=== PATIENT | female | born 1960 | race Caucasian/White ===

== ENCOUNTER → 2018-02-24 03:51 | Outpatient (CLI) | payer OTHER, SELFPAY ==
[2018-02-24 11:23] LABS: ALT 28 U/L (12-78); AST 20 U/L (15-37); Albumin 3.7 g/dL (3.4-5.0); Alkaline Phosphatase 114 U/L (46-116); Anion Gap 8.2 mmol/L (3-11); BUN 14 mg/dL (7-18); Bilirubin, Total 0.3 mg/dL (0.2-1.0); CO2 25.8 mmol/L (21.0-32.0); CREATININE 0.74 mg/dL (0.55-1.02); Calcium 8.7 mg/dL (8.5-10.1); Chloride 108 mmol/L (98-107); Cholesterol 142 mg/dL (50-200); Glucose 94 mg/dL (70-100); HDL Cholesterol 36 mg/dL (40-60); LDL CHOLESTEROL 90 mg/dL (<100); Potassium 5.2 mmol/L (3.5-5.1); Sodium 142 mmol/L (136-145); Total Protein 6.8 g/dL (6.4-8.2); Triglyceride 68 mg/dL (30-150)
== END ==
DX: E78.2 Mixed hyperlipidemia (principal); C56.9 Malignant neoplasm of unspecified ovary; E78.5 Hyperlipidemia, unspecified; F17.200 Nicotine dependence, unspecified, uncomplicated; Z00.00 Encounter for general adult medical examination without abnormal findings
CPT/HCPCS: 36415; 80053; 80061; 83721

== ENCOUNTER 2018-04-21 15:08 | Outpatient (REF) | payer OTHER, SELFPAY ==
--- NOTE | 2018-04-21 11:30 | PAPFT_PTH ---
PATIENT: Jessenia Aguilar LOC: [facility] U#:[id number] AGE/SX: 57/F ROOM: RE04/21/[address]: RAMSES Lamb : 1960 BED: DIS: 04/21/2018 SPEC #: [id number] RECD: 04/21/18 18:00 STATUS: DENY RESage #: [id number] MANDO: 04/21/18 11:[address]: Susan Henson DEPT: [facility] Cytology RECD BY: Suzette Mak ENTERED: 04/21/18 18:00 SP TYPE: PAPFT OTHR DR: Divya Delcid APRN Tissues: 1 - CX/ENDOCX FOR PAP SMEARS Procedures: PAP THIN PREP/UVM Screening Comments: [id number]
== END 2018-04-21 15:28 ==
LOC: LBN 15:08
PROVIDERS: Visit Provider Nurse Practitioner Family
DX: Z12.4 Encounter for screening for malignant neoplasm of cervix (principal)
CPT/HCPCS: 88142

== ENCOUNTER 2018-05-12 01:07 | Outpatient (CLI) | payer OTHER, SELFPAY ==
--- NOTE | 2018-05-12 11:36 | DI.MAMMO_ITS ---
SYMPTOM/DIAGNOSIS: SCREENING, Z12.31 MAMMOGRAMS: Mammograms were interpreted according to the usual protocol including computer analysis with CAD system, tomosynthesis and C view imaging. Comparison with prior examinations. Breast density Category B. No masses or microcalcifications are seen. There is nothing to suggest malignancy. IMPRESSION: Negative mammogram. Routine screening is recommended. Category I. MQSA ASSESSMENT OF FINDINGS: Negative. Category 1. Patient will receive a letter notifying them of these results. BI-RADS category B. There are scattered areas of fibroglandular density.
== END 2018-05-12 01:27 ==
PROVIDERS: Visit Provider Nurse Practitioner Family
DX: Z12.31 Encounter for screening mammogram for malignant neoplasm of breast (principal)
CPT/HCPCS: 77063; 77067

== ENCOUNTER 2018-09-03 07:20 | Emergency (ER) | payer OTHER, SELFPAY ==
[2018-09-03 07:25] VITALS: BP 135/66; PULSE 96; RESP 18; TEMP 37.1; O2SAT 98
--- NOTE | 2018-09-03 07:30 | W.ED.GENAD ---
Discharge Plan Disposition Patient Disposition: HOME Condition: Good Discharge Details Chief Complaint: RespSymp Clinical Impression: Acute bacterial sinusitis Primary Care Provider: Divya Delcid ED Provider: Gavin Singh [place] Meds and New Rx's Prescriptions: New amoxicillin-pot clavulanate 875-125 mg tablet 1 tab PO BID Qty: 14 RF: 0 Continued multivitamin [One Daily] 1 EACH tablet 1 tab PO DAILY RF: 0 Os-Marques 500 + D3 1 EACH tablet,chewable 1 tab PO DAILY RF: 0 simvastatin [Zocor] 20 mg tablet 20 mg PO HS Qty: 90 RF: 3 Discharge Instructions Instructions: Amoxicillin/Clavulanate Potassium (By mouth), Sinusitis (ED) Additional Instructions: Push fluids to stay hydrated. May continue wkhf-rqb-plhopwu cold and sinus medications. Sudafed may work better for you as a decongestant. Antibiotic as directed for 1 week. Consider taking a probiotic while on antibiotic. Follow-up with primary care in 1 week if not better. Return to emergency department for worsening pain, worsening headache, persistent high fever, neurologic changes, eye pain or vision changes. Referrals: Divya Delcid, RECEPTION SPECIALIST [Primary Care Provider] - Medical Decision Making Patient here with sinus/nasal congestion with purulent discharge, low-grade fever, sinus tenderness. She has been ill for over 3 weeks. She was getting better and got worse suggesting possible bacterial superinfection. With the amount of tenderness and purulent drainage will treat with antibiotics. May continue symptomatic management with idnf-ixj-ijnwwrb cold and sinus medication. Follow-up with primary care next week if not better. Return to ED if worsening symptoms. HPI General Mode of arrival: ambulatory. Date/Time Provider Initiated Documentation: 09/03/18 07:30. Limitations to Documentation: no limitations. Information obtained by: patient. HPI Narrative: Patient presents to ED with complaint of sinus pain and pressure. Patient has been ill with URI type symptoms for almost 3 weeks. She thought she was getting better but has subsequently got worse with increased pain and pressure in her face as well as green nasal discharge. She has had some low-grade fevers recently. Her cough has steadily improved. She had body aches which have resolved. She never really had earache or sore throat. She has been using ripf-zkc-[id number] Advil cold and sinus symptoms. She is a smoker. She is otherwise healthy. She has no known drug allergies. Related Data Home Medications Medication Instructions Recorded Confirmed Os-Marques 500 + D3 1 tab PO DAILY tab.chew 11/08/12 09/03/18 multivitamin [One Daily] 1 tab PO DAILY 11/08/12 09/03/18 simvastatin 20 mg tablet 20 mg PO HS #90 tab-cap 04/07/18 09/03/18 amoxicillin-pot clavulanate 1 tab PO BID #14 tab 09/03/18 Previous Rx's Medication Instructions Recorded simvastatin 20 mg tablet 20 mg PO HS #90 tab-cap 04/07/18 amoxicillin-pot clavulanate 1 tab PO BID #14 tab 09/03/18 Allergies Allergy/AdvReac Type Severity Reaction Status Date / Time No Known Drug Allergies Allergy Unverified 09/03/18 07:29 General Stated Complaint: RespSymp EMBER: 4 Review of Systems Constitutional Denies chills, Denies fatigue, Reports fever(s) (low grade), Denies headache(s), Denies malaise and Denies weakness Eyes Denies change in vision, Denies eye discharge and Denies eye pain ENT Denies vertigo, Denies dizziness, Denies otalgia, Reports facial pain, Denies headache(s), Reports nasal congestion, Reports nasal discharge, Denies neck pain, Reports sinus pain, Reports sinus pressure and Denies sore throat Cardiovascular Denies chest pain and Denies dyspnea Respiratory Reports cough and Denies dyspnea Gastrointestinal Denies diarrhea, Denies nausea and Denies vomiting Musculoskeletal Denies back pain, Denies myalgias, Denies arthralgias, Denies neck pain and Denies numbness Neurologic Denies confusion, Denies vertigo, Denies dizziness, Denies headache(s), Denies focal weakness, Denies numbness and Denies weakness Psychiatric Denies confusion Endocrine Denies fatigue [facility] Medical History Hyperlipidemia (Chronic) Smoker (Chronic 11/09/12) Polyp of colon (Chronic) Malignant tumor of ovary (Chronic) Personal history of colonic polyps (Chronic) Surgical History Abdominal hysterectomy (~1988) Colonoscopy - IV Sedation (05/23/15) Oophrectomy, Left Social History current occupational status: employed current occupation: [employer] current occupational exposures/hazards: No Hx Recent Travel: No sexually active: Yes do you think of yourself as: straight/heterosexual well-balanced diet: about half the time what type of physical activity do you participate in: walking and normal ROM and activity frequency: 3-4 times per week Smoking and Tabacco status: Current-Occasional tobacco type: cigarettes Tobacco: How many years used: 42 quit status: considering quitting counseling given: counseling >3 minutes alcohol intake: current alcohol intake frequency: holidays/special occasions only substance use type: does not use special marie needs: No do you feel safe at home: Yes victim of physical abuse: No victim of emotional abuse: No victim of sexual abuse: No History History 2 Para 2 Hx # Term Pregnancies 2 Multiple births Hx # Pregnancies Ectopic pregnancies AB induced Hx Number of Living Children AB spontaneous Exam Const General: cooperative, comfortable and no acute distress Orientation: alert and oriented x3 HENMT Head: normocephalic and atraumatic Ears: TM normal on the left and unable to visualize TM on the right General nose exam: nasal discharge purulent Face and sinus: face symmetric and sinus tenderness maxillary Mouth: oropharynx normal and moist mucous membranes Throat: posterior oropharynx normal Eyes Pupils: PERRL EOM: EOM intact bilaterally Neck Neck: no lymphadenopathy, no meningeal signs, trachea midline and supple Resp Effort & Inspection: normal respiratory effort Auscultation: clear to auscultation bilaterally Neuro General: alert, oriented x3, gait normal, no focal motor deficits and CN's II-XI intact bilaterally Cognition: normal cognition Speech: speech normal Course Vital Signs Temperature 98.8 F 09/03/18 07:25 Pulse 96 H 09/03/18 07:25 Respiratory Rate 18 09/03/18 07:25 Blood Pressure 135/66 09/03/18 07:25 Pulse Oximetry 98 09/03/18 07:25 Temperature 98.8 F 09/03/18 07:25 Temperature Source Temporal Artery Scan 09/03/18 07:25 Pulse 96 H 09/03/18 07:25 Respiratory Rate 18 09/03/18 07:25 Respiratory Effort Non-Labored 09/03/18 07:29 Respiratory Depth Normal 09/03/18 07:29 Blood Pressure 135/66 09/03/18 07:25 Blood Pressure Position Sitting 09/03/18 07:25 Pulse Oximetry 98 09/03/18 07:25 Oxygen Delivery Method Room Air 09/03/18 07:25 Oxygen Flow Rate 0 09/03/18 07:25 Pain Level 10 09/03/18 07:25
[2018-09-03] MEDS: Amoxicillin 875/Clav. 125 TAB PO (07:48)
--- NOTE | 2018-09-03 07:49 | ED.GENADUL_ITS ---
Discharge Plan Disposition Patient Disposition: HOME Condition: Good Discharge Details Chief Complaint: RespSymp Clinical Impression: Acute bacterial sinusitis Primary Care Provider: Divya Delcid ED Provider: Gavin Singh [place] Meds and New Rx's Prescriptions: New amoxicillin-pot clavulanate 875-125 mg tablet 1 tab PO BID Qty: 14 RF: 0 Continued multivitamin [One Daily] 1 EACH tablet 1 tab PO DAILY RF: 0 Os-Marques 500 + D3 1 EACH tablet,chewable 1 tab PO DAILY RF: 0 simvastatin [Zocor] 20 mg tablet 20 mg PO HS Qty: 90 RF: 3 Discharge Instructions Instructions: Amoxicillin/Clavulanate Potassium (By mouth), Sinusitis (ED) Additional Instructions: Push fluids to stay hydrated. May continue kttg-its-pjjzdgd cold and sinus medications. Sudafed may work better for you as a decongestant. Antibiotic as directed for 1 week. Consider taking a probiotic while on antibiotic. Follow- up with primary care in 1 week if not better. Return to emergency department for worsening pain, worsening headache, persistent high fever, neurologic changes, eye pain or vision changes. Referrals: Divya Delcid, PASTE MIXER [Primary Care Provider] - Medical Decision Making Patient here with sinus/nasal congestion with purulent discharge, low-grade fever, sinus tenderness. She has been ill for over 3 weeks. She was getting better and got worse suggesting possible bacterial superinfection. With the amount of tenderness and purulent drainage will treat with antibiotics. May continue symptomatic management with socf-wir-kowsjsa cold and sinus medication. Follow-up with primary care next week if not better. Return to ED if worsening symptoms. HPI General Mode of arrival: ambulatory . Date/Time Provider Initiated Documentation: 09/03/18 07:30 . Limitations to Documentation: no limitations . Information obtained by: patient . HPI Narrative: Patient presents to ED with complaint of sinus pain and pressure. Patient has been ill with URI type symptoms for almost 3 weeks. She thought she was getting better but has subsequently got worse with increased pain and pressure in her face as well as green nasal discharge. She has had some low-grade fevers recently. Her cough has steadily improved. She had body aches which have resolved. She never really had earache or sore throat. She has been using znyg-qum-yhevmip Advil cold and sinus symptoms. She is a smoker. She is otherwise healthy. She has no known drug allergies. Related Data Home Medications Medication Instructions Recorded Confirmed Os-Marques 500 + D3 1 tab PO DAILY tab.chew 11/08/12 09/03/18 multivitamin [One Daily] 1 tab PO DAILY 11/08/12 09/03/18 simvastatin 20 mg tablet 20 mg PO HS #90 tab-cap 04/07/18 09/03/18 amoxicillin-pot clavulanate 1 tab PO BID #14 tab 09/03/18 Previous Rx's Medication Instructions Recorded simvastatin 20 mg tablet 20 mg PO HS #90 tab-cap 04/07/18 amoxicillin-pot clavulanate 1 tab PO BID #14 tab 09/03/18 Allergies Allergy/AdvReac Type Severity Reaction Status Date / Time No Known Drug Allergies Allergy Unverified 09/03/18 07:29 General Stated Complaint: RespSymp EMBER: 4 Review of Systems Constitutional Denies chills, Denies fatigue, Reports fever(s) (low grade), Denies headache(s), Denies malaise and Denies weakness Eyes Denies change in vision, Denies eye discharge and Denies eye pain ENT Denies vertigo, Denies dizziness, Denies otalgia, Reports facial pain, Denies headache(s), Reports nasal congestion, Reports nasal discharge, Denies neck pain, Reports sinus pain, Reports sinus pressure and Denies sore throat Cardiovascular Denies chest pain and Denies dyspnea Respiratory Reports cough and Denies dyspnea Gastrointestinal Denies diarrhea, Denies nausea and Denies vomiting Musculoskeletal Denies back pain, Denies myalgias, Denies arthralgias, Denies neck pain and Denies numbness Neurologic Denies confusion, Denies vertigo, Denies dizziness, Denies headache(s), Denies focal weakness, Denies numbness and Denies weakness Psychiatric Denies confusion Endocrine Denies fatigue [facility] Medical History Hyperlipidemia (Chronic) Smoker (Chronic 11/09/12) Polyp of colon (Chronic) Malignant tumor of ovary (Chronic) Personal history of colonic polyps (Chronic) Surgical History Abdominal hysterectomy (~1988) Colonoscopy - IV Sedation (05/23/15) Oophrectomy, Left Social History current occupational status: employed current occupation: [employer] current occupational exposures/hazards: No Hx Recent Travel: No sexually active: Yes do you think of yourself as: straight/heterosexual well-balanced diet: about half the time what type of physical activity do you participate in: walking and normal ROM and activity frequency: 3-4 times per week Smoking and Tabacco status: Current-Occasional tobacco type: cigarettes Tobacco: How many years used: 42 quit status: considering quitting counseling given: counseling >3 minutes alcohol intake: current alcohol intake frequency: holidays/special occasions only substance use type: does not use special marie needs: No do you feel safe at home: Yes victim of physical abuse: No victim of emotional abuse: No victim of sexual abuse: No History History 2 Para 2 Hx # Term Pregnancies 2 Multiple births Hx # Pregnancies Ectopic pregnancies AB induced Hx Number of Living Children AB spontaneous Exam Const General: cooperative, comfortable and no acute distress Orientation: alert and oriented x3 HENMT Head: normocephalic and atraumatic Ears: TM normal on the left and unable to visualize TM on the right General nose exam: nasal discharge purulent Face and sinus: face symmetric and sinus tenderness maxillary Mouth: oropharynx normal and moist mucous membranes Throat: posterior oropharynx normal Eyes Pupils: PERRL EOM: EOM intact bilaterally Neck Neck: no lymphadenopathy, no meningeal signs, trachea midline and supple Resp Effort & Inspection: normal respiratory effort Auscultation: clear to auscultation bilaterally Neuro General: alert, oriented x3, gait normal, no focal motor deficits and CN's II-XI intact bilaterally Cognition: normal cognition Speech: speech normal Course Vital Signs Temperature 98.8 F 09/03/18 07:25 Pulse 96 H 09/03/18 07:25 Respiratory Rate 18 09/03/18 07:25 Blood Pressure 135/66 09/03/18 07:25 Pulse Oximetry 98 09/03/18 07:25 Temperature 98.8 F 09/03/18 07:25 Temperature Source Temporal Artery Scan 09/03/18 07:25 Pulse 96 H 09/03/18 07:25 Respiratory Rate 18 09/03/18 07:25 Respiratory Effort Non-Labored 09/03/18 07:29 Respiratory Depth Normal 09/03/18 07:29 Blood Pressure 135/66 09/03/18 07:25 Blood Pressure Position Sitting 09/03/18 07:25 Pulse Oximetry 98 09/03/18 07:25 Oxygen Delivery Method Room Air 09/03/18 07:25 Oxygen Flow Rate 0 09/03/18 07:25 Pain Level 10 09/03/18 07:25
== END 2018-09-03 07:55 | disposition home or self-care (01) ==
PROVIDERS: Emergency Provider Emergency Medicine
DX: R51 Headache (principal); R50.9 Fever, unspecified; J01.90 Acute sinusitis, unspecified; F17.210 Nicotine dependence, cigarettes, uncomplicated
CPT/HCPCS: 99283

== ENCOUNTER 2019-03-30 01:53 | Outpatient (CLI) | payer OTHER, SELFPAY ==
[2019-03-30 11:21] LABS: ALT 26 U/L (14-59); AST 21 U/L (15-37); Albumin 3.7 g/dL (3.4-5.0); Alkaline Phosphatase 116 U/L (46-116); Anion Gap 11.7 mmol/L (3-11); BUN 13 mg/dL (7-18); Bilirubin, Total 0.4 mg/dL (0.2-1.0); CO2 24.3 mmol/L (21.0-32.0); CREATININE 0.78 mg/dL (0.55-1.02); Calcium 8.9 mg/dL (8.5-10.1); Calculated LDL 97 mg/dL; Chloride 107 mmol/L (98-107); Cholesterol 146 mg/dL (50-200); Glucose 93 mg/dL (70-100); HDL Cholesterol 37 mg/dL (40-60); Potassium 4.7 mmol/L (3.5-5.1); Sodium 143 mmol/L (136-145); Total Protein 6.9 g/dL (6.4-8.2); Triglyceride 60 mg/dL (30-150)
== END 2019-03-30 02:13 ==
DX: F17.200 Nicotine dependence, unspecified, uncomplicated (principal); Z86.010 Personal history of colon polyps
CPT/HCPCS: 36415; 80053; 80061

== ENCOUNTER 2019-05-23 00:35 | Outpatient (CLI) | payer OTHER, SELFPAY ==
--- NOTE | 2019-05-23 15:01 | DI.MAMMO_ITS ---
EXAM: MG MAMMO SCREENING CLINICAL HISTORY: Screening,z12.39 TECHNIQUE: Bilateral full field digital CC and MLO mammographic images were obtained with 3D tomosyn thesis and utilizing computer aided detection (CAD). COMPARISON: Available for comparison. FINDINGS: Masses/Architectural Distortion: None seen. Microcalcifications: No suspicious pleomorphic-type are seen. Skin Thickening/Nipple Retraction: None. IMPRESSION: 1. No significant interval change with no specific features of malignancy noted. 2. Unless there is more urgent need, screening mammography is recommended, as per [place] [employer] guidelines. ACR BI-RAD Category- 1 Negative Breast Density - Category B - Scattered areas of fibroglandular density A negative radiographic report should not delay biopsy if a dominant or clinically suspicious mass is present. Up to ten percent of cancers are not identified on mammography. A negative report may reinforce clinical impression. Adenosis and dense breasts may obscure an underlying neoplasm. False positive reports average 6 to 10%. Patient will receive a letter notifying them of these results.
== END 2019-05-23 00:55 ==
PROVIDERS: Visit Provider Nurse Practitioner Family
DX: Z12.31 Encounter for screening mammogram for malignant neoplasm of breast (principal)
CPT/HCPCS: 77063; 77067

== ENCOUNTER 2020-04-21 01:43 | Outpatient (CLI) | payer OTHER, SELFPAY ==
[2020-04-21 08:51] LABS: ALT 30 U/L (14-59); AST 20 U/L (15-37); Albumin 3.8 g/dL (3.4-5.0); Alkaline Phosphatase 131 U/L (46-116); Anion Gap 12.1 mmol/L (3-11); BUN 22 mg/dL (7-18); Bilirubin, Total 0.2 mg/dL (0.2-1.0); CO2 24.9 mmol/L (21.0-32.0); CREATININE 0.86 mg/dL (0.55-1.02); Calcium 8.9 mg/dL (8.5-10.1); Calculated LDL 128 mg/dL (<100); Chloride 101 mmol/L (98-107); Cholesterol 195 mg/dL (<200); Glucose 97 mg/dL (74-106); HDL Cholesterol 39 mg/dL (40-60); Potassium 4.6 mmol/L (3.5-5.1); Sodium 138 mmol/L (136-145); Total Protein 7.4 g/dL (6.4-8.2); Triglyceride 142 mg/dL (<150)
== END 2020-04-21 02:03 ==
DX: Z00.00 Encounter for general adult medical examination without abnormal findings (principal); E78.5 Hyperlipidemia, unspecified
CPT/HCPCS: 36415; 80053; 80061

== ENCOUNTER 2021-01-21 17:44 | Outpatient (REF) | payer OTHER, SELFPAY ==
[2021-01-23 14:02] LABS: ANA Interpretation Positive (Negative); ANA Titer Pattern 1:320 Speckled
== END 2021-01-21 17:45 | disposition home or self-care (01) ==
LOC: LBN 17:44
PROVIDERS: Visit Provider Nurse Practitioner Family
DX: R21 Rash and other nonspecific skin eruption (principal)
CPT/HCPCS: 86038

== ENCOUNTER 2021-05-12 09:27 | Outpatient (REF) | payer OTHER, SELFPAY ==
--- NOTE | 2021-05-12 07:00 | PAPFT_PTH ---
PATIENT: Jessenia Aguilar LOC: [facility] U#:[id number] AGE/SX: 60/F ROOM: RE05/12/[address]: Divya Delcid APRN : 1960 BED: DIS: 05/12/2021 SPEC #: [id number] RECD: 05/12/21 12:46 STATUS: DENY GARY #: [id number] MANDO: 05/12/21 07:[address]: Divya Delcid DEPT: [facility] Cytology RECD BY: Suzette Mak Tissues: 1 - CX/ENDOCX FOR PAP SMEARS Procedures: PAP THIN PREP/UVM Screening HPV DNA PROBE Comments: [id number] (HPV 16 & 18/45)
== END 2021-05-12 09:28 | disposition home or self-care (01) ==
LOC: LBN 09:27
DX: Z12.4 Encounter for screening for malignant neoplasm of cervix (principal); Z11.51 Encounter for screening for human papillomavirus (HPV); R87.820 Cervical low risk human papillomavirus (HPV) DNA test positive
CPT/HCPCS: 88142; 87624

== ENCOUNTER 2021-06-08 00:58 | Outpatient (CLI) | payer OTHER, SELFPAY ==
--- NOTE | 2021-06-08 08:15 | DI.MAMMO_ITS ---
Exam(s) MAMMO SCREENING EXAM: MAMMO SCREENING CLINICAL HISTORY: [id number]. TECHNIQUE: Bilateral full field digital CC and MLO mammographic images were obtained with 3D tomosyn thesis and utilizing computer aided detection (CAD). COMPARISON: Prior mammograms dating back to 2011, the most recent being May 2019. FINDINGS: There has been no significant change in the appearance and distribution of the fibroglandular tissue. There are no new spiculated masses nor malignant appearing microcalcification groups. There is no significant architectural distortion nor skin thickening-retraction. IMPRESSION: No radiographic evidence of malignancy. BI-RADS Category 1 - Negative Breast Density - Category B - Scattered areas of fibroglandular density Breast density Category C or D implies that the patient has dense breast tissue. Dense breast tissue can make it harder to find cancer on a mammogram. Dense breast tissue is also associated with an incr eased risk of breast cancer. This information about the result of the mammogram report was provided to the patient to raise their awareness. Use this report when you speak with the patient about their risks for breast cancer, which includes their family history. At that time, you may recommend additional screening tests (Ultrasoun d or MRI) as these tests may add significant information. A negative radiographic report should not delay biopsy if a dominant or clinically suspicious mass is present. Up to ten percent of cancers are not identified on mammography. A negative report may reinforce clinical impression. Adenosis and dense breasts may obscure an underlying neoplasm. False positive reports average 6 to 10%. Patient will receive a letter notifying them of these results.
== END 2021-06-08 01:18 ==
DX: Z12.31 Encounter for screening mammogram for malignant neoplasm of breast (principal)
CPT/HCPCS: 77063; 77067

== ENCOUNTER → 2022-07-07 01:16 | Outpatient (CLI) | payer BC, SELFPAY ==
--- NOTE | 2022-07-07 07:00 | DI.MAMMO_ITS ---
Exam(s) MAMMO SCREENING EXAM: MAMMO SCREENING CLINICAL HISTORY: screening,z12.39 TECHNIQUE: Bilateral full field digital CC and MLO mammographic images were obtained with 3D tomosyn thesis and utilizing computer aided detection (CAD). COMPARISON: Available for comparison. FINDINGS: Masses/Architectural Distortion: None seen. Microcalcifications: No suspicious pleomorphic-type are seen. Skin Thickening/Nipple Retraction: None. IMPRESSION: 1. No significant interval change with no specific features of malignancy noted. 2. Unless there is more urgent need, screening mammography is recommended, as per [place] [employer] guidelines. BI-RADS Category 1 - Negative Breast Density - Category B - Scattered areas of fibroglandular density Breast density category C or D implies that the patient has dense breast tissue. Dense breast tissue is very common and is not abnormal but dense breast tissue can make it harder to find cancer on a ma mmogram. Also, dense breast tissue may increase their breast cancer risk. This information about the result of the mammogram report was provided to the patient to raise their awareness. Use this report when you speak with the patient about their risks for breast cancer, which includes their family hist ory. At that time, you may recommend for more screening tests (Ultrasound or MRI) as they might be us eful based on their risk. A negative radiographic report should not delay biopsy if a dominant or clinically suspicious mass is present. Up to ten percent of cancers are not identified on mammography. A negative report may reinforce clinical impression. Adenosis and dense breasts may obscure an underlying neoplasm. False positive reports average 6 to 10%. Patient will receive a letter notifying them of these results.
== END ==
PROVIDERS: PCP Nurse Practitioner Family; Visit Provider Nurse Practitioner Family
DX: Z12.31 Encounter for screening mammogram for malignant neoplasm of breast (principal)
CPT/HCPCS: 77063; 77067

== ENCOUNTER 2022-07-07 02:39 | Outpatient (CLI) | payer BC, SELFPAY ==
[2022-07-07 12:42] LABS: ALT 47 U/L (14-59); AST 29 U/L (15-37); Albumin 3.9 g/dL (3.4-5.0); Alkaline Phosphatase 126 U/L (46-116); BUN 12 mg/dL (7-18); Bilirubin, Total 0.3 mg/dL (0.2-1.0); CREATININE 0.8 mg/dL (0.55-1.02); Calcium 9.4 mg/dL (8.5-10.1); Calculated LDL 102 mg/dL (<100); Chloride 105 mmol/L (98-107); Cholesterol 168 mg/dL (<200); Estimated GFR 82.74 (mL/min/1.73m2); Glucose 93 mg/dL (74-106); HDL Cholesterol 48 mg/dL (40-60); Potassium 4.2 mmol/L (3.5-5.1); Sodium 141 mmol/L (136-145); Total Protein 7.7 g/dL (6.4-8.2); Triglyceride 92 mg/dL (<150)
[2022-07-08 10:13] LABS: HIV-1/2 Ag & Ab Screen Negative (Negative)
[2022-07-08 11:01] LABS: Hepatitis C Ab w Rflx HCV PCR Negative (Negative)
== END 2022-07-07 02:40 | disposition home or self-care (01) ==
LOC: LOS 02:39
PROVIDERS: PCP Nurse Practitioner Family; Visit Provider Nurse Practitioner Family
DX: E78.5 Hyperlipidemia, unspecified (principal); Z11.4 Encounter for screening for human immunodeficiency virus [HIV]; Z11.59 Encounter for screening for other viral diseases
CPT/HCPCS: 36415; 80053; 80061; 86803; 87389

== ENCOUNTER 2023-07-01 20:59 | Outpatient (REF) | payer BC, SELFPAY ==
--- NOTE | 2023-07-01 10:15 | PAPFT_PTH ---
PATIENT: Jessenia Aguilar LOC: [facility] U#:[id number] AGE/SX: 62/F ROOM: RE07/01/[address]: Pasquale Gregg DNP : 1960 BED: DIS: 07/01/2023 SPEC #: [id number] RECD: 07/05/23 12:47 STATUS: DENY RESage #: [id number] MANDO: 07/01/23 10:[address]: Pasquale Hazel DEPT: [facility] Cytology RECD BY: Suzette Mak Tissues: 1 - CX/ENDOCX FOR PAP SMEARS Procedures: PAP THIN PREP/UVM Screening Comments: [id number]
[2023-07-01 21:42] LABS: ALT 35 U/L (14-59); AST 22 U/L (15-37); Albumin 3.8 g/dL (3.4-5.0); Alkaline Phosphatase 126 U/L (46-116); Anion Gap 9.3 mmol/L (3-11); BUN 17 mg/dL (7-18); Bilirubin, Total 0.3 mg/dL (0.2-1.0); CO2 22.7 mmol/L (21.0-32.0); CREATININE 0.7 mg/dL (0.55-1.02); Calcium 9.6 mg/dL (8.5-10.1); Calculated LDL 105 mg/dL (<100); Chloride 105 mmol/L (98-107); Cholesterol 165 mg/dL (<200); Estimated GFR 96.52 (mL/min/1.73m2); Glucose 104 mg/dL (74-106); HDL Cholesterol 40 mg/dL (40-60); Potassium 4.2 mmol/L (3.5-5.1); Sodium 137 mmol/L (136-145); Total Protein 7.3 g/dL (6.4-8.2); Triglyceride 104 mg/dL (<150)
== END 2023-07-01 21:00 | disposition home or self-care (01) ==
LOC: LBN 20:59
PROVIDERS: PCP Nurse Practitioner Family; Visit Provider Nurse Practitioner Family
DX: E78.5 Hyperlipidemia, unspecified (principal)
CPT/HCPCS: 80053; 80061; 88142

== ENCOUNTER → 2023-08-08 01:08 | Outpatient (CLI) | payer BC, SELFPAY ==
--- NOTE | 2023-08-08 07:15 | DI.MAMMO_ITS ---
Exam(s) MAMMO SCREENING EXAM: MAMMO SCREENING CLINICAL HISTORY: screening,z12.39 TECHNIQUE: Bilateral full field digital CC and MLO mammographic images were obtained with 3D tomosyn thesis and utilizing computer aided detection (CAD). COMPARISON: Available for comparison. FINDINGS: Masses/Architectural Distortion: None seen. Microcalcifications: No suspicious pleomorphic-type are seen. Skin Thickening/Nipple Retraction: None. IMPRESSION: 1. No significant interval change with no specific features of malignancy noted. 2. Unless there is more urgent need, screening mammography is recommended, as per [place] [employer] guidelines. BI-RADS Category 1 - Negative Breast Density - Category B - Scattered areas of fibroglandular density Breast density category C or D implies that the patient has dense breast tissue. Dense breast tissue is very common and is not abnormal but dense breast tissue can make it harder to find cancer on a ma mmogram. Also, dense breast tissue may increase their breast cancer risk. This information about the result of the mammogram report was provided to the patient to raise their awareness. Use this report when you speak with the patient about their risks for breast cancer, which includes their family hist ory. At that time, you may recommend for more screening tests (Ultrasound or MRI) as they might be us eful based on their risk. A negative radiographic report should not delay biopsy if a dominant or clinically suspicious mass is present. Up to ten percent of cancers are not identified on mammography. A negative report may reinforce clinical impression. Adenosis and dense breasts may obscure an underlying neoplasm. False positive reports average 6 to 10%. Patient will receive a letter notifying them of these results.
== END ==
PROVIDERS: PCP Nurse Practitioner Family; Visit Provider Nurse Practitioner Family
DX: Z12.31 Encounter for screening mammogram for malignant neoplasm of breast (principal)
CPT/HCPCS: 77063; 77067

== ENCOUNTER 2024-07-13 21:53 | Outpatient (REF) | payer MEDICARE, SELFPAY ==
[2024-07-13 22:43] LABS: ALT 26 U/L (14-59); AST 19 U/L (15-37); Albumin 3.9 g/dL (3.4-5.0); Alkaline Phosphatase 120 U/L (46-116); Anion Gap 11.3 mmol/L (3-11); BUN 12 mg/dL (7-18); CO2 22.7 mmol/L (21.0-32.0); CREATININE 0.8 mg/dL (0.55-1.02); Calcium 9.2 mg/dL (8.5-10.1); Calculated LDL 106 mg/dL (<100); Chloride 104 mmol/L (98-107); Cholesterol 178 mg/dL (<200); Estimated GFR 81.72 (mL/min/1.73m2); Glucose 93 mg/dL (74-106); HDL Cholesterol 46 mg/dL (40-60); Potassium 4.3 mmol/L (3.5-5.1); Sodium 138 mmol/L (136-145); TSH (W/Ref FT4) 0.74 uIU/mL (0.36-3.74); Total Protein 7.6 g/dL (6.4-8.2); Triglyceride 133 mg/dL (<150)
== END 2024-07-13 21:54 | disposition home or self-care (01) ==
LOC: LBN 21:53
PROVIDERS: PCP Nurse Practitioner Family; Visit Provider Nurse Practitioner Family
DX: E78.5 Hyperlipidemia, unspecified (principal); Z12.11 Encounter for screening for malignant neoplasm of colon
CPT/HCPCS: 80053; 80061; 84443